=== PATIENT | male | born 1960 | race Caucasian/White ===

== ENCOUNTER 2018-07-18 09:24 | Day surgery (SDC) | payer OTHER ==
[2018-07-18] MEDS ORDERED: Ringers Lactate 1,000 ML IV ONE (09:48)
[2018-07-18] MEDS ORDERED: CEFAZOLIN/SWI 1gm 1 GM/10 ML SYR ONE (09:49)
[2018-07-18] MEDS ORDERED: PROPOFOL 200 MG/20 ML VIAL IV ONE ×2 (10:20→11:57)
[2018-07-18] MEDS ORDERED: FENTANYL CITR 100 MCG/2 ML ONE (10:20)
[2018-07-18] MEDS ORDERED: MIDAZOLAM HCL 2 MG/2 ML INJ ONE ×2 (10:22→13:47)
[2018-07-18] MEDS ORDERED: LIDOCAINE 1% MPF 2 ML AMPULE ONE (10:22)
[2018-07-18] MEDS ORDERED: ONDANSETRON HCL 40 MG/20 ML VIAL ONE (10:22)
--- NOTE | 2018-07-18 11:48 | EKG ---
Test Date: 2018-07-18 Test Time: 09:22:09 Special Tester: CATE MEASUREMENT RESULTS: Intervals: Rate: 63 MN: 174 QRSD: 94 QT: 402 QTc: 411 [place]: P: 60 MN: 174 QRS: 21 T: 31 INTERPRETIVE STATEMENTS: Normal sinus rhythm Normal ECG Compared to ECG 03/02/2017 01:20:54 No significant changes Electronically Signed On 07-18-18 11:46:23 CDT by Otilio Vasques
[2018-07-18] MEDS ORDERED: ROCURONIUM 50 MG/5 ML VIAL IV ONE (11:49)
[2018-07-18] MEDS ORDERED: METOCLOPRAMIDE 10 MG/2mL INJ ONE (11:57)
[2018-07-18] MEDS ORDERED: GLYCOPYRROLATE 0.2 MG/ML SYR ONE (12:12)
[2018-07-18] MEDS ORDERED: NEOSTIGMINE 1 MG/ML -5 ML SYRINGE ONE (12:12)
[2018-07-18] MEDS ORDERED: EPHEDRINE SULF 50 MG/10 ML SYR ONE (12:21)
[2018-07-18] MEDS ORDERED: PROMETHAZINE 25 MG/ML VIAL ONE (13:47)
--- NOTE | 2018-07-18 14:24 | RAD REPORT ---
EXAM DESCRIPTION: RAD - Chest Pa And Lat (2 Views) - 07/18/2018 9:27 am CLINICAL HISTORY: Preop chest, soft tissue mass removal due to system wide technical malfunction, ov ernight and morning reports were all delayed. COMPARISON: February 2017 TECHNIQUE: PA and lateral views of the chest were obtained. FINDINGS: The lungs are clear of failure, infiltrate or mass. Lung markings are prominent but not cl early different. Heart size is normal and central vasculature is within normal limits. No pleural effusion or pneumothorax seen. No acute bony finding noted. No aortic abnormality. IMPRESSION: No acute cardiopulmonary process. Chronic chest findings are stable from comparison.
[2018-07-18 14:25] VITALS: BP 140/87; TEMP 97.2; O2SAT 100
[2018-07-18 14:50] LABS: Potassium 4.4 mmol/L (3.5-5.1)
[2018-07-18 16:33] LABS: Absolute Lymphocytes (CBC) 1.7 K/uL (0.7-4.9); Absolute Monocytes 0.6 K/uL (0.1-1.3); Absolute Neutrophil 3.9 K/uL (1.8-8.0); Basophils % 0.8 % (0-1.3); Eosinophils % 1.9 % (0-4.4); Hematocrit 45.2 % (39.6-49.0); MCH 31.7 pg (27.0-35.0); MCV 93.6 fL (80-100); MPV 9.5 fL (7.6-11.3); Monocytes % 9.4 % (3.3-12.3); RBC Red Blood Cell Count 4.83 M/uL (4.33-5.43)
--- NOTE | 2018-07-19 01:28 | OP ---
Date of Procedure: 07/18/2018 Surgeon: Toy Mcguire MD Slip Seat Coverer: JOHAN Larkin. Preoperative Diagnoses: Left arm mass, right posterior thigh mass, and left face mass. Postoperative Diagnoses: Left arm mass, right posterior thigh mass, and left face mass. Procedure: 1.Wide excision, right posterior thigh mass 5 x 3 cm with layered closure. 2.Wide excision, left arm mass 4 x 2 cm with layered closure. 3.Shave biopsy of the left face mass. Estimated Blood Loss: Minimal. Specimen: Masses as above. Findings: On frozen section, there was no evidence of carcinoma. Anesthesia: General. Complications: None. Disposition: The patient tolerated the procedure in stable condition and taken to recovery room in g ood general condition. Operative Note: The patient was brought to the OR and placed in supine position. General anesthesia was begun. The patient was placed in the left lateral position and prepped and draped in the usual sterile fashion. Marcaine 0.5% was infiltrated locally. A 15-blade was used to make a 5 x 3 cm inci thanh in the posterior thigh where the patient had hypertrophic skin down through the dermis into the subcutaneous space. Entire area excised, labeled properly, and sent to Pathology for frozen section, which did not reveal any evidence of malignancy, just hyperkeratotic skin. Wound irrigated. Bleedi ng controlled with cautery. Flaps created and then 2-0 chromic used to approximate the subcutaneous tissue and 3-0 nylon used to close the skin. Sterile dressing was applied. In the left forearm, a 4 x 2 cm incision was made after Marcaine 0.5% was infiltrated locally. A 15-blade was used to make a 4 x 2 cm incision, and a 1 cm raised pleomorphic mass was excised, sent to Pathology. Frozen sectio n revealed no evidence of cancer. Then, wound irrigated. Bleeding controlled with cautery. Flaps c reated and 3-0 chromic used to approximate the subcutaneous tissue and 4-0 nylon used to close the sk in. Sterile dressing was applied. The patient was placed in a supine position. The left face prepp ed draped in usual sterile fashion. Marcaine 0.5% infiltrated locally. Then, a shave biopsy of a 5- mm dark pleomorphic mass was done and then through the dermis. This was a seborrheic keratosis, and subsequently, no frozen section was done and cautery was used to control the bleeding and then Neospo rin and sterile dressing applied. The patient was awakened and taken to recovery room in good genera l condition. Discharge Note: The patient will go to Day Surgery and home when stable. Disposition: Home. Condition: Stable. Discharge Instructions: Resume home medications and diet. Activity as tolerated. No heavy lifting. Remove outer dressing in 2 days. Shower. Keep wound clean and dry. Follow up in my office in 1 w [place]. Call for appointment. Tylenol No.3 one tablet p.o. q.4 p.r.n. pain. /MODL Voice ID: [id number] Report ID: [id number]
== END 2018-07-18 15:10 | disposition home or self-care (01) ==
LOC: OR 09:24
PROVIDERS: ATTEND Surgery
PROC: 0JBH0ZZ Excision of Left Lower Arm Subcutaneous Tissue and Fascia, Open Approach (ICD-10-PCS; 2018-07-18)
PROC: 0HB1XZX Excision of Face Skin, External Approach, Diagnostic (ICD-10-PCS; 2018-07-18)
PROC: 0JBL0ZZ Excision of Right Upper Leg Subcutaneous Tissue and Fascia, Open Approach (ICD-10-PCS; principal; 2018-07-18 10:00)
DX: R22.41 Localized swelling, mass and lump, right lower limb (principal); L82.1 Other seborrheic keratosis; L85.8 Other specified epidermal thickening; L57.8 Other skin changes due to chronic exposure to nonionizing radiation; I10 Essential (primary) hypertension; K21.9 Gastro-esophageal reflux disease without esophagitis; F17.210 Nicotine dependence, cigarettes, uncomplicated; Z80.0 Family history of malignant neoplasm of digestive organs
CPT/HCPCS: 11100; 11404; 11406; 36415; 71046; 80048; 85025; 88305; 88331 ×2; 88332; 93005; J0690; J2001; J2250; J2405; J2550; J2710; J2765; J3010